=== PATIENT | male | born 1955 | race Two or more races ===

== ENCOUNTER 2021-09-07 11:05 | Emergency (ER) | payer OTHER ==
[~2021-09-07] VITALS: Ht 165.1 cm; Wt 58.5 kg
== END 2021-09-07 14:43 | disposition home or self-care (01) ==
LOC: ER 11:05
DX: S33.9XXA Sprain of unspecified parts of lumbar spine and pelvis, initial encounter (principal); X58.XXXA Exposure to other specified factors, initial encounter; Y93.89 Activity, other specified; Y92.89 Other specified places as the place of occurrence of the external cause